=== PATIENT | female | born 1950 | race Caucasian/White ===

== ENCOUNTER → 2018-11-03 | Outpatient (CLI) | payer MEDICARE ==
[~2018-11-03] MED LIST: CHOL200074 PO; TRAM50TA PO
[2018-11-03 12:14] VITALS: BP 139/76
== END | disposition home or self-care (01) ==
LOC: SURG 11:56
PROVIDERS: ATTEND Anesthesiology Pain Medicine
DX: M16.11 Unilateral primary osteoarthritis, right hip (principal); M19.079 Primary osteoarthritis, unspecified ankle and foot; M25.579 Pain in unspecified ankle and joints of unspecified foot; M54.9 Dorsalgia, unspecified; G89.4 Chronic pain syndrome; Z79.891 Long term (current) use of opiate analgesic; Z79.899 Other long term (current) drug therapy
CPT/HCPCS: 99204

== ENCOUNTER → 2019-01-11 | Outpatient (CLI) | payer MEDICARE ==
[~2019-01-11] MED LIST changes: +HYDR-3165 PO; +MULT1TAB52 PO
[2019-01-11 13:45] VITALS: BP 153/75
== END | disposition home or self-care (01) ==
LOC: SURG 12:47
PROVIDERS: ATTEND Anesthesiology Pain Medicine
DX: M19.072 Primary osteoarthritis, left ankle and foot (principal); M16.11 Unilateral primary osteoarthritis, right hip; G89.4 Chronic pain syndrome; Z79.899 Other long term (current) drug therapy; Z79.891 Long term (current) use of opiate analgesic
CPT/HCPCS: 99214